=== PATIENT | male | born 1975 | race African-American/Black ===

== ENCOUNTER 2021-02-07 19:20 | Emergency (ER) | payer OTHER ==
[~2021-02-07 19:20] MED LIST: ASCORBIC ACID500 MG PO; IBUPROFEN800 MG PO; MELATONIN 5 MG1 EACH PO; ZINC50 M1 PO
[2021-02-07 19:50] LABS: BASOPHIL 0.7 % (0-2); EOSINOPHIL 2.6 % (0-5); HCT 46.6 % (42.0-52.0); HGB 15.5 g/dl (13.2-18.0); LYMPHOCYTE 38.6 % (15-48); MCH 27.5 pg (25.0-31.0); MCHC 33.3 g/dL (32.0-36.0); MCV 82.8 fL (78.0-100.0); MONOCYTE 9.6 % (0-12); NRBC 0; PLT 263 K/uL (150-400); RBC 5.63 M/uL (4.70-6.00); RDW 13.1 % (11.5-14.0); WBC 6.1 K/uL (4.0-10.5)
[2021-02-07 20:13] LABS: ALBUMIN 4.1 g/dL (3.4-5.0); BILIRUBIN - TOTAL 0.5 mg/dL (0.2-1.0); BUN/CREAT RATIO (CALC) 7.9 RATIO; CREATININE 0.89 mg/dL (0.67-1.17); GLOBULIN (CALCULATION) 4.1 g/dL; POTASSIUM 3.4 mmol/L (3.5-5.1); TOTAL PROTEIN 8.2 g/dL (6.4-8.2)
[2021-02-07 20:19] LABS: LACTIC ACID 0.8 mmol/L (0.4-1.9)
[2021-02-07 20:48] LABS: BILIRUBIN NEGATIVE (NEGATIVE); BLOOD NEGATIVE Ery/uL (NEGATIVE); CLARITY CLEAR (CLEAR); COLOR YELLOW (YELLOW); GLUCOSE (U) NORMAL (NORMAL); LEUKOCYTES NEGATIVE Leu/uL (NEGATIVE); NITRITE NEGATIVE (NEGATIVE); PROTEIN NEGATIVE (NEGATIVE); UROBILINOGEN 0.2 mg/dL (0.2-1.0); pH 7.5 (5.0-9.0)
[2021-02-07] MEDS ORDERED: ONDANSETRON ODT4 MG SL (22:08)
[2021-02-07] MEDS ORDERED: BENTYL10 MG PO (22:08)
== END 2021-02-07 22:20 | disposition home or self-care (01) ==
LOC: FER 19:20
PROVIDERS: Emergency Medicine Emergency Medical Services
DX: R10.31 Right lower quadrant pain (principal); R10.32 Left lower quadrant pain; R11.0 Nausea; F17.290 Nicotine dependence, other tobacco product, uncomplicated; Z87.19 Personal history of other diseases of the digestive system
CPT/HCPCS: 36415; 80053; 81003; 83605; 83690; 84145; 85025; J1885; J2270; J2405; J7030; Q9967